=== PATIENT | female | born 1980 | race Caucasian/White ===

== ENCOUNTER 2020-04-09 22:52 | Emergency (ER) | payer SELFPAY ==
[~2020-04-09] VITALS: Ht 165.1 cm; Wt 83.9 kg
[~2020-04-09 22:52] MED LIST: AMOX500 PO; AZIT250; CYCL10 PO; FLUT110OIA IH; HYDACE5 PO; HYDACE5325 PO; HYDGUAL120 PO; IBUP800 PO; LORA2 PO; NAPR500 PO; NAPR550 PO; Naprosyn500 MG PO; ONDA4 PO; ONDA4ODT MM; RXLORA1 PO; RXNAPNA550 PO; TRAM50 PO; Valium5 MG PO
[2020-04-09 23:28] LABS: BASOPHILS ABSOLUTE AUTO 0.04 K/mm3 (0.00-0.23); BASOPHILS PERCENT AUTO 1 % (0-2); EOSINOPHILS ABSOLUTE AUTO 0.12 K/mm3 (0.00-0.68); EOSINOPHILS PERCENT AUTO 1 % (0-6); Hematocrit 34.8 % (33.0-51.0); IMMATURE GRAN ABSOLUTE AUTO 0.02 K/mm3 (0.00-0.10); IMMATURE GRAN PERCENT AUTO 0 % (0-1); LYMPHOCYTES ABSOLUTE AUTO 2.24 K/mm3 (0.84-5.20); LYMPHOCYTES PERCENT AUTO 27 % (21-46); MONOCYTES ABSOLUTE AUTO 0.65 K/mm3 (0.16-1.47); MONOCYTES PERCENT AUTO 8 % (4-13); Mean Corpuscular HGB 27.6 pg (26.0-34.0); Mean Corpuscular HGB Conc 31.6 g/dL (31.5-36.5); Mean Corpuscular Volume 87 fL (80-100); NEUTROPHILS ABSOLUTE AUTO 5.39 K/mm3 (1.96-9.15); NEUTROPHILS PERCENT AUTO 64 % (41-73); Platelet Count 263 K/mm3 (150-400); RDW Coefficient Variation 13.2 % (11.7-14.2); RDW Standard Deviation 42.3 fL (35.1-46.3); Red Blood Cell Count 3.98 M/mm3 (3.80-5.20); White Blood Cell Count 8.46 K/mm3 (4.00-11.30)
[2020-04-09 23:42] LABS: Prothrombin Time Results 10.7 Sec (9.7-11.5)
== END 2020-04-10 00:08 | disposition home or self-care (01) ==
LOC: ER 22:52
PROVIDERS: Physician Assistant
DX: S81.811A Laceration without foreign body, right lower leg, initial encounter (principal); F17.210 Nicotine dependence, cigarettes, uncomplicated; Z23 Encounter for immunization; W26.8XXA Contact with other sharp object(s), not elsewhere classified, initial encounter; Y93.89 Activity, other specified
CPT/HCPCS: 12002; 85025; 85610; 90471; 90714; 99284-25